=== PATIENT | male | born 2000 | race Caucasian/White ===

== ENCOUNTER 2021-07-13 22:23 | Emergency (ER) | payer OTHER ==
[2021-07-13 23:41] LABS: HEMOGLOBIN 15.7 gm/dl (14.0-17.5); RED BLOOD COUNT 5.08 M/UL (4.20-5.50); WHITE BLOOD COUNT 9.1 K/UL (4.5-11.0)
[2021-07-13 23:55] LABS: BUN/CREATININE RATIO 14 (0-10)
== END 2021-07-14 01:55 | disposition home or self-care (01) ==
LOC: ER1 22:23
PROVIDERS: Physician Assistant Medical
DX: R07.9 Chest pain, unspecified (principal); J45.909 Unspecified asthma, uncomplicated; F17.290 Nicotine dependence, other tobacco product, uncomplicated; Z88.8 Allergy status to other drugs, medicaments and biological substances
CPT/HCPCS: 71045; 80053; 82550; 82553; 84439; 84443; 84484; 85025; 85379; 93005; 99285

== ENCOUNTER 2021-08-13 12:11 | Emergency (ER) | payer OTHER ==
[2021-08-13 13:26] LABS: HEMOGLOBIN 15.2 gm/dl (14.0-17.5); RED BLOOD COUNT 4.96 M/UL (4.20-5.50); WHITE BLOOD COUNT 7.9 K/UL (4.5-11.0)
[2021-08-13 13:50] LABS: BUN/CREATININE RATIO 9 (0-10)
[2021-08-13] MEDS ORDERED: PROTONIX40 MG PO (15:37)
[2021-08-13] MEDS ORDERED: MYLANTA MAXIMU355 ML PO (15:37)
[2021-08-13] MEDS ORDERED: ONDANSETRON ODT4 MG SL (15:37)
== END 2021-08-13 16:03 | disposition home or self-care (01) ==
LOC: ER1 12:11
PROVIDERS: Physician Assistant
DX: R10.13 Epigastric pain (principal); K21.9 Gastro-esophageal reflux disease without esophagitis; F17.200 Nicotine dependence, unspecified, uncomplicated
CPT/HCPCS: 80053; 81001; 83690; 85025; 96374; 96375; 99285; C9113; J2405; Q9967